=== PATIENT | male | born 1955 | race Two or more races ===

== ENCOUNTER 2023-07-23 12:46 | Emergency (ER) | payer OTHER ==
[~2023-07-23] VITALS: Ht 185.4 cm; Wt 71.7 kg
[2023-07-23] MEDS ORDERED: LOTREL 5-20 MG1 CAP (12:55)
[2023-07-23] MEDS ORDERED: LIPITOR20 MG PO (12:55)
[2023-07-23 14:25] LABS: ABG PH 7.461 (7.35-7.45); ABG PO2 70.3 mmHg (80-100); ABG pCO2 34.2 mmHg (35-45); BASE EXCESS 0.6 mmol/l; BICARBONATE 23.8 mmol/l (23-25); SaO2 94.9 %; Tco2 24.9 mmol/l
[2023-07-23 15:06] LABS: HEMATOCRIT 39.5 % (39.0-48.0); HEMOGLOBIN 12.9 g/dL (13-16.00); MEAN CELL VOLUME 79.6 fL (80.0-100.00); MEAN CORPUSCULAR HEMOGLOBIN 25.9 pg (27.00-32.0); MEAN CORPUSCULAR HGB CONC 32.6 g/dl (32.0-36.0); PLATELET COUNT 415 K/uL (150-450); RED BLOOD COUNT 4.96 M/uL (4.00-6.00); RED CELL DISTRIBUTION WIDTH 14.6 % (11.5-14.5)
[2023-07-23 15:21] LABS: CALCIUM 9.6 mg/dL (8.5-10.1); CREATININE SERUM 0.75 mg/dL (0.70-1.30); GFR 102.96; POTASSIUM 3.77 mEq/L (3.5-5.1)
[2023-07-23 15:49] LABS: allen test SATISFACTORY; o2 21 %; puncture site RADIAL LEFT
== END 2023-07-23 16:11 | disposition home or self-care (01) ==
LOC: ER 12:47
PROVIDERS: General Practice
DX: R05.9 Cough, unspecified (principal); Z20.822 Contact with and (suspected) exposure to COVID-19
CPT/HCPCS: 36415; 82803; 96372; 99284; J0696; J2930

== ENCOUNTER 2025-02-28 09:28 | Outpatient (CLI) | payer OTHER ==
[~2025-02-28 09:28] MED LIST: LIPITOR20 MG PO; LOTREL 5-20 MG1 CAP
== END 2025-02-28 09:30 | disposition home or self-care (01) ==
LOC: SONOGRAMA 09:28
PROVIDERS: ATTEND Pathology Anatomic Pathology & Clinical Pathology
DX: R19.09 Other intra-abdominal and pelvic swelling, mass and lump (principal)

== ENCOUNTER 2025-06-05 09:15 | Outpatient (CLI) | payer OTHER ==
[~2025-06-05 09:15] MED LIST changes: -TAMS0.4C; -VERIPRED 220 MG/5 ML
[2025-06-05 10:44] LABS: BASO % 1.0 % (0.1-1.2); EOS # 0.11 (0.04-0.54); EOS % 1.3 % (0.7-7.0); LYMPH # 0.87 (1.18-3.74); LYMPH % 10.6 % (19.3-53.1); MEAN PLATELET VOLUME 9.50 fl (9.4-12.4); MONO # 1.22 (0.24-0.82); NEUT # 5.87 (1.56-6.13); NEUT % 72.0 % (34.0-71.1); RED CELL DISTRIBUTION WIDTH 19.3 % (11.6-14.4)
[2025-06-05 10:50] LABS: MONO % 14.9 % (4.7-12.5)
[2025-06-05 11:09] LABS: INR 1.02
== END 2025-06-05 12:26 | disposition home or self-care (01) ==
LOC: LAB 09:15
DX: C85.95 Non-Hodgkin lymphoma, unspecified, lymph nodes of inguinal region and lower limb (principal)

== ENCOUNTER → 2025-06-05 | Outpatient (CLI) | payer OTHER ==
[~2025-06-05] VITALS: Ht 185.4 cm; Wt 72.6 kg
[~2025-06-05] MED LIST changes: +TAMS0.4C; +VERIPRED 220 MG/5 ML
[2025-06-05 10:55] VITALS: BP 122/73; O2SAT 97
[2025-06-05 11:30] VITALS: BP 136/82; O2SAT 97
[2025-06-05 11:46] VITALS: BP 128/81; O2SAT 98
[2025-06-05 12:00] VITALS: BP 127/84; O2SAT 98
== END | disposition home or self-care (01) ==
LOC: SONOGRAMA 10:19 → TOM 10:19
PROVIDERS: ATTEND Specialist
DX: C83.36 Diffuse large B-cell lymphoma, intrapelvic lymph nodes (principal)

== ENCOUNTER 2025-06-25 10:00 | Day surgery (SDC) | payer OTHER ==
[2025-06-19 09:57] VITALS: BP 132/78
[2025-06-19 11:09] LABS: ALT/SGPT 17.0 U/L (12-78); AST/SGOT 21.0 U/L (15-37); BILIRUBIN TOTAL 0.5 mg/dL (0.3-1.2); BUN CREA RATIO 44.0 (7.0-25.0); CREATININE SERUM 0.82 mg/dL (0.70-1.30); GFR 92.35; GLOBULINA 2.9 G/DL (2.4-3.5); GLUCOSE FASTING 98.0 mg/dL (65-100); OSMOLALITY SERUM 286.0 MOSM/KG (275-295)
[2025-06-19 12:32] LABS: URINE APPEARANCE Clear; URINE BACTERIA 35.9 uL (0.0-1933); URINE BILIRRUBIN Negative (NEGATIVE); URINE BLOOD Negative; URINE COLOR Yellow; URINE EPITHELIAL CELLS 4.7 uL (0.0-38.8); URINE GLUCOSE Negative (NEGATIVE); URINE KETONE Negative (NEGATIVE); URINE LEUKOCYTE Small; URINE NITRATE Negative; URINE PROTEIN Negative (NEGATIVE); URINE RBC 9.2 uL (0.0-20.8); URINE UROBILINOGEN 0.2 E.U./dl; URINE WBC 138.9 uL (0.0-23.2)
[2025-06-19 13:09] LABS: URINE CAST 0.43 uL (0.0-1.40)
[~2025-06-25] VITALS: Ht 185.4 cm; Wt 72.6 kg
[~2025-06-25 10:00] MED LIST changes: +TAMS0.4C; +VERIPRED 220 MG/5 ML
[2025-06-25] MEDS ORDERED: CEFAZOLIN SODIUM 1,000 MG VIAL ONE (10:30)
[2025-06-25] MEDS ORDERED: BUPIVACAINE HCL/MPF 0.5% 30ML VIAL ONE (13:08)
[2025-06-25] MEDS ORDERED: LIDOCAINE HCL 1% 20 ML VIAL IJ ONE (13:08)
[2025-06-25] MEDS ORDERED: LIDOCAINE HCL 1%/EPINEPHRINE 20ML VIAL IJ ONE (13:09)
[2025-06-25] MEDS ORDERED: HEPARIN SODIUM,PORCINE/PF 100 UNIT/ML SYRINGE IV ONE (13:09)
[2025-06-25] MEDS ORDERED: CEFAZOLIN SODIUM 1,000 MG VIAL IV SCH (15:45)
== END 2025-06-25 16:55 | disposition home or self-care (01) ==
LOC: CIR.AMB 10:00
PROVIDERS: ATTEND Specialist
DX: C85.95 Non-Hodgkin lymphoma, unspecified, lymph nodes of inguinal region and lower limb (principal)
CPT/HCPCS: 36561; C1751